=== PATIENT | female | born 1995 | race Caucasian/White ===

== ENCOUNTER 2018-06-08 15:44 | Emergency (ER) | payer OTHER ==
[~2018-06-08] VITALS: Ht 152.4 cm; Wt 63.5 kg
[2018-06-08] MEDS ORDERED: TAMIFLU 75MG CA75 MG PO (17:32)
== END 2018-06-08 17:45 | disposition home or self-care (01) ==
LOC: ED 15:44
DX: J10.1 Influenza due to other identified influenza virus with other respiratory manifestations (principal)

== ENCOUNTER 2018-08-19 17:07 | Emergency (ER) | payer OTHER ==
[~2018-08-19] VITALS: Ht 152.4 cm; Wt 63.0 kg
[~2018-08-19 17:07] MED LIST: TAMIFLU 75MG CA75 MG PO
[2018-08-19] MEDS ORDERED: AMOXICILLIN500 M3 PO (17:19)
== END 2018-08-19 17:32 | disposition home or self-care (01) ==
LOC: ED 17:07
DX: J03.90 Acute tonsillitis, unspecified (principal)

== ENCOUNTER 2018-10-15 15:00 | Emergency (ER) | payer OTHER ==
[~2018-10-15] VITALS: Ht 152.4 cm; Wt 61.2 kg
[~2018-10-15 15:00] MED LIST changes: +AMOXICILLIN500 M3 PO
[2018-10-15] MEDS ORDERED: AMOXICILLIN500 M2 PO (16:42)
== END 2018-10-15 16:50 | disposition home or self-care (01) ==
LOC: ED 15:00
DX: J03.90 Acute tonsillitis, unspecified (principal); F17.200 Nicotine dependence, unspecified, uncomplicated